=== PATIENT | female | born 1950 | race Caucasian/White ===

== ENCOUNTER 2019-05-15 17:24 | Outpatient (CLI) | payer MEDICARE, SELFPAY ==
--- NOTE | 2019-05-15 | XR_ITS ---
WS: [id number] RIGHT SHOULDER: 3 VIEW(S) TECHNIQUE: Internal and external rotation with Y view. HISTORY: RIGHT SHOULDER PAIN COMPARISON: None available. No fracture or dislocation or soft tissue abnormality. Prior resection of the distal RIGHT clavicle. Widening of the AC joint status post surgical resection . XR/XR shoulder RT min 2V* [id number] IMPRESSION: 1. No dislocation or fracture. 2. Status post resection distal RIGHT clavicle.
== END 2019-05-15 17:25 | disposition home or self-care (01) ==
PROVIDERS: Visit Provider Nurse Practitioner Family
DX: Z76.89 Persons encountering health services in other specified circumstances (principal)

== ENCOUNTER → 2020-10-04 17:09 | Outpatient (BNVA) | payer MEDICARE, SELFPAY | PROVIDERS: Visit Provider Nurse Practitioner | DX: M54.9 Dorsalgia, unspecified (principal); N39.0 Urinary tract infection, site not specified | CPT/HCPCS: 81000 ==

== ENCOUNTER 2021-07-25 18:06 | Emergency (ER) | payer MEDICARE, SELFPAY ==
[2021-07-25 18:24] VITALS: BP 140/83; PULSE 103; RESP 20; TEMP 37.2; O2SAT 95; BMI 31.8
--- NOTE | 2021-07-25 18:36 | ECG_ITS ---
[facility] Test Date: 2021-07-25 Pat Name: Jazmín Thomas Department: Room: Gender: Female Strategic Development Manager: : 1950 Requested By: Flaco Allred Order Number: [id number] Rosalinda MD: Mio Howard M.D. Measurements Intervals [place] Rate: 92 P: 87 ID: [id number] QRS: 84 QRSD: 66 T: 80 QT: 324 QTc: 401 Interpretive Statements SINUS RHYTHM No previous ECG available for comparison Electronically Signed On 07-25-2021 19:07:32 CDT by Mio Howard M.D. [id number]
--- NOTE | 2021-07-25 18:36 | XRR_ITS ---
PROCEDURE INFORMATION: Exam: XR Chest Exam date and time: 07/25/2021 7:06 PM Age: 71 years old Clinical indication: Dyspnea; Additional info: Chest pain, dyspnea TECHNIQUE: Imaging protocol: XR of the chest. Views: 2 views. COMPARISON: CR XR shoulder RT min 2V* [id number] 05/15/2019 5:24 PM FINDINGS: Lungs: Mildly hyperaerated lungs consistent with deep inspiratory effort vs reactive airway disease vs mild COPD . Possible faint 3.0 cm rounded pneumonia right lung base versus overlapping shadows. Seen only on the PA view. Pleural spaces: Unremarkable. No pleural effusion. No pneumothorax. Heart/Mediastinum: Unremarkable. No cardiomegaly. Bones/joints: Unremarkable. XR/XR chest 2V* [id number] IMPRESSION: 1. Mildly hyperaerated lungs consistent with deep inspiratory effort vs reactive airway disease vs mild COPD . 2. Possible faint 3.0 cm rounded pneumonia right lung base versus overlapping shadows. Seen only on the PA view.
--- NOTE | 2021-07-25 18:49 | W.ED.GENADLT ---
HPI - General Adult General: Chief complaint: Shortness of Breath/Dyspnea Stated complaint: SOB, cough Time Seen by Provider: 07/25/21 18:36 History of Present Illness: Patient is 71-year-old female with a history of smoking who presents the emergency room with 2 weeks of worsening symptoms of cough, generalized weakness, productive sputum and fatigue. Patient tells me that her grandson are sick at home with RSV. Patient went to an urgent care and was told to come to the emergency room. Patient has been having on and off fever for the last 5 days with fever yesterday of 102 degrees. Patient denies any diarrhea, abdominal complaints, nausea/vomiting, melena hematochezia or urinary complaints Onset: 2 weeks ago Duration:2 weeks Location:home Severity: moderate Associated symptoms: Reports dyspnea; Deny chest pain, nausea, rash, palpitations or vomiting Review of Systems Const: Reports: fatigue and other (+generalized weakness); Denies: fever(s) or chills Eyes: Denies: change in vision ENMT: Denies: mouth pain Card: Denies: chest pain or palpitations Resp: Reports: dyspnea and productive cough GI: Denies: abdominal pain, nausea, vomiting or diarrhea : Denies: dysuria Musc: Denies: extremity pain Skin/Breast: Denies: rash or new lesions Neuro: Denies: weakness in extremities Psych: Reports: other (Normal mood) Dexter/Lymph: Denies: easy bruising PFS ED PFSH: Medical History (Updated 07/25/21 @ 20:43 by Flaco Allred MD) No pertinent past medical history Social History (Updated 07/25/21 @ 18:50 by Flaco Allred MD) Smoking and tobacco status: current every day smoker Alcohol intake: never Substance/Drug Use: never Physical Exam Const: COMMON NORMALS: alert HENMT: COMMON NORMALS: atraumatic HEAD & SCALP: atraumatic MOUTH: moist mucous membranes abnormal Eye: COMMON NORMALS: EOMs intact bilaterally and conjunctivae normal CONJUNCTIVA: Yes conjunctivae normal Neck/C-Spine: COMMON NORMALS: full ROM and supple Resp: COMMON NORMALS: normal respiratory effort OTHER: +mild coarse breath sounds b/l in the lung parrish Cardio: RATE: tachycardic GI: COMMON NORMALS: Soft to palpation and non-tender PALPATION: Yes Soft to palpation Extremity: COMMON NORMALS: full ROM Neuro: SENSORIUM/ORIENTATION: Yes alert MOTOR EXAM: No Abnormal motor strength present and Other motor observations present (no focal motor deficits) Psych: COMMON NORMALS: speech normal SPEECH: Yes normal speech MOOD & AFFECT: Yes euthymic mood Course Vital Signs: Vital signs: Vital Signs Temperature 99 F 07/25/21 18:24 Pulse Rate 95 07/25/21 22:04 Respiratory Rate 18 07/25/21 22:04 Blood Pressure 141/72 07/25/21 22:04 Pulse Oximetry 96 07/25/21 22:04 MDM - General Adult Medical Decision Making 71-year-old Fe with history of smoking presenting to the emergency room for evaluation of dyspnea, cough, generalized weakness and fatigue. On exam, patient is afebrile, has mild coarse breath sounds bilaterally appears to be dry and tachycardic. Patient received IVF. X-ray showed possible pneumonia vs atelectiasis. Covid swab negative. Influenza negative. Patient received DuoNeb in the emergency room reports symptomatic improvement. Patient received doxycycline and Augmentin for pneumonia. Rx tylenol PRN pain and fever, doxycycline and augmentin BID x 10 days for pneumonia I have given patient follow up with our patient case coordinator to be seen by our outpatient PCP for reassessment of pneumonia since patient does not have a PCP. Patient prefers providers at [facility]. Patient aware of a call from our patient case coordinator to schedule for appointment(s) and verbalizes understanding of the importance of following up. Disposition: Discharge. Patient counseled regarding diagnostic impression, treatment plan. Patient given ED strict return precautions to return for continuation, worsening, or development of new symptoms. Instructed to f/u w/ PCP regarding symptoms today. Patient verbalized understanding. Lab Data : 07/25/21 18:54 07/25/21 18:54 Radiology Impressions Chest X-Ray 07/25/21 18:36 IMPRESSION: 1. Mildly hyperaerated lungs consistent with deep inspiratory effort vs reactive airway disease vs mild COPD . 2. Possible faint 3.0 cm rounded pneumonia right lung base versus overlapping shadows. Seen only on the PA view. Laboratory Results WBC 12.6 10^3/uL (4.0-10.0) H 07/25/21 18:54 RBC 4.25 10^6/uL (4.1-5.3) 07/25/21 18:54 Hgb 12.6 g/dL (11.5-15.3) 07/25/21 18:54 Hct 38.7 % (37.0-47.0) 07/25/21 18:54 MCV 91.1 fl (81-99) 07/25/21 18:54 MCH 29.6 pg (28.0-34.0) 07/25/21 18:54 MCHC 32.6 g/dL (30.0-36.0) 07/25/21 18:54 RDW 12.5 % (12.1-15.1) 07/25/21 18:54 Plt Count 286 10^3/cmm (130-400) 07/25/21 18:54 MPV 9.3 fL (7.4-10.4) 07/25/21 18:54 Neut % (Auto) 73.7 % 07/25/21 18:54 Lymph % (Auto) 13.1 % 07/25/21 18:54 [place] % (Auto) 11.5 % 07/25/21 18:54 Eos % (Auto) 0.7 % 07/25/21 18:54 Baso % (Auto) 0.6 % 07/25/21 18:54 Neut # (Auto) 9.30 10^3/uL (1.8-7.7) H 07/25/21 18:54 Lymph # (Auto) 1.7 10^3/uL (0.8-4.8) 07/25/21 18:54 [place] # (Auto) 1.5 10^3/uL (0.2-0.9) H 07/25/21 18:54 Eos # (Auto) 0.1 10^3/uL (0.0-0.8) 07/25/21 18:54 Baso # (Auto) 0.1 10^3/uL (0.0-0.1) 07/25/21 18:54 Nucleated RBC % (auto) 0 % 07/25/21 18:54 Nucleated RBCs # 0.0 /100WBC 07/25/21 18:54 Sodium 133 mmol/L (136-145) L 07/25/21 18:54 Potassium 3.9 mmol/L (3.5-5.1) 07/25/21 18:54 Chloride 97 mmol/L (98-107) L 07/25/21 18:54 Carbon Dioxide 23 mmol/L (22-29) 07/25/21 18:54 Anion Gap 16.9 (5-19) 07/25/21 18:54 BUN 11 mg/dL (8-23) 07/25/21 18:54 Creatinine 0.7 mg/dL (0.5-0.9) 07/25/21 18:54 GFR Calculation 83.0 mL/min (90-130) L 07/25/21 18:54 Glucose 105 mg/dL (65-115) 07/25/21 18:54 Calculated Osmolality 276 mOsm/kg (285-295) L 07/25/21 18:54 Calcium 9.4 mg/dL (8.5-10.5) 07/25/21 18:54 Troponin T Baseline 6 ng/L (0-10) 07/25/21 18:54 Troponin T 120 Minute 8.02 ng/L (0-10) 07/25/21 20:55 Delta Troponin T Not Reportable 07/25/21 20:55 Nasal Influ A H1 2009 PCR Not detected (NOT DETECT) 07/25/21 18:54 Adenovirus (PCR) Not detected (NOT DETECT) 07/25/21 18:54 C. pneumoniae DNA (PCR) Not detected (NOT DETECT) 07/25/21 18:54 Coronavirus 229E (PCR) Not detected (NOT DETECT) 07/25/21 18:54 Human Metapneumovir PCR Not detected (NOT DETECT) 07/25/21 18:54 Influenza A (H1) PCR Not detected (NOT DETECT) 07/25/21 18:54 Influenza A (H3) PCR Not detected (NOT DETECT) 07/25/21 18:54 Influenza Type A (PCR) Not detected (NOT DETECT) 07/25/21 18:54 Influenza Type B (PCR) Not detected (NOT DETECT) 07/25/21 18:54 M. pneumoniae (PCR) Not detected (NOT DETECT) 07/25/21 18:54 Parainfluenza 1 (PCR) Not detected (NOT DETECT) 07/25/21 18:54 Parainfluenza 2 (PCR) Not detected (NOT DETECT) 07/25/21 18:54 Parainfluenza 3 (PCR) Not detected (NOT DETECT) 07/25/21 18:54 Parainfluenza 4 (PCR) Not detected (NOT DETECT) 07/25/21 18:54 RSV Type A (PCR) Not detected (NOT DETECT) 07/25/21 18:54 RSV Type B (PCR) Not detected (NOT DETECT) 07/25/21 18:54 Entero/Rhino (PCR) Not detected (NOT DETECT) 07/25/21 18:54 SARS-CoV-2 (PCR) Not detected (NOT DETECT) 07/25/21 18:54 Imaging Data Other Imaging: My impression: [facility] [place] [address] XRay Report Signed Patient: Jazmín Thomas Unit #: [id number] : 1950 Age/Sex: 71 / F ADM Date: 07/25/21 Loc: ER Room/Bed: Attending Dr: Ordering Provider/Ordering MD: Flaco Allred MD Date of Service: 07/25/21 Procedure(s): XR chest 2V* [id number] Accession Number(s): [id number] Report Number: [id number] PROCEDURE INFORMATION: Exam: XR Chest Exam date and time: 07/25/2021 7:06 PM Age: 71 years old Clinical indication: Dyspnea; Additional info: Chest pain, dyspnea TECHNIQUE: Imaging protocol: XR of the chest. Views: 2 views. COMPARISON: CR XR shoulder RT min 2V* [id number] 05/15/2019 5:24 PM FINDINGS: Lungs: Mildly hyperaerated lungs consistent with deep inspiratory effort vs reactive airway disease vs mild COPD . Possible faint 3.0 cm rounded pneumonia right lung base versus overlapping shadows. Seen only on the PA view. Pleural spaces: Unremarkable. No pleural effusion. No pneumothorax. Heart/Mediastinum: Unremarkable. No cardiomegaly. Bones/joints: Unremarkable. XR/XR chest 2V* [id number] IMPRESSION: 1. Mildly hyperaerated lungs consistent with deep inspiratory effort vs reactive airway disease vs mild COPD . 2. Possible faint 3.0 cm rounded pneumonia right lung base versus overlapping shadows. Seen only on the PA view. ? Dictated By: Paul Rolle MD Signed By: Paul Rolle MD Signed Date/Time: 07/25/212018 DD/ 1906 Discharge Plan Discharge Patient Disposition: Home Clinical Impression: Cough, Pneumonia Condition: Stable Prescriptions: New acetaminophen 500 mg tablet 500 mg PO Q6H PRN (Reason: pain) 5 Days Qty: 20 0RF doxycycline hyclate 100 mg capsule 100 mg PO BID 10 Days Qty: 20 0RF Augmentin 500-125 mg tablet 1 tab PO BID 10 Days Qty: 20 0RF No Action ciprofloxacin HCl [Cipro] 500 mg tablet 500 mg PO Q12H 7 Days Qty: 14 0RF phenazopyridine [Pyridium] 200 mg tablet 200 mg PO TID Qty: 6 0RF Discharge Orders: Discharge ED (Routine); Ordered 07/25/21 Ordered By: Flaco Allred Discharge Diet: Advance as tolerated Discharge Activity: Increase activity as tolerated Patient Instructions: Acute Cough (ED) Activity Restrictions/Additional Instructions: Come back to the emergency room if your symptoms worsen, have any shortness of breath, fever/chills, dehydration, inability tolerate food or drinks, any difficulty breathing, or any new or concerning complaints. Coding Level of Care Code ED Ethics Manager for Erik Fwmarquise Exam Comprehensive
[2021-07-25 19:00] LABS: Basophils # 0.1 10^3/uL (0.0-0.1); Basophils % 0.6 %; Eosinophils # 0.1 10^3/uL (0.0-0.8); Eosinophils % 0.7 %; Hematocrit 38.7 % (37.0-47.0); Hemoglobin 12.6 g/dL (11.5-15.3); Lymphocytes # 1.7 10^3/uL (0.8-4.8); Lymphocytes % 13.1 %; Mean Corpuscular HGB Conc 32.6 g/dL (30.0-36.0); Mean Corpuscular Hemoglobin 29.6 pg (28.0-34.0); Mean Corpuscular Volume 91.1 fl (81-99); Mean Platelet Volume 9.3 fL (7.4-10.4); Monocytes # 1.5 10^3/uL (0.2-0.9); Monocytes % 11.5 %; Neutrophils % 73.7 %; Nucleated Red Blood Cells % 0 %; Platelet Count 286 10^3/cmm (130-400); Red Blood Count 4.25 10^6/uL (4.1-5.3); Red Cell Distribution Width 12.5 % (12.1-15.1); White Blood Count 12.6 10^3/uL (4.0-10.0)
[2021-07-25] MEDS: sodium chloride 0.9% 500 ML IV (19:03)
[2021-07-25] MEDS: ipratropium-albuterol 3 mL Neb INHALATION ×3 (19:06)
[2021-07-25 19:14] VITALS: PULSE 91; RESP 18; O2SAT 95
[2021-07-25 19:20] LABS: Anion Gap 16.9 (5-19); Blood Urea Nitrogen 11 mg/dL (8-23); Calcium 9.4 mg/dL (8.5-10.5); Carbon Dioxide 23 mmol/L (22-29); Chloride 97 mmol/L (98-107); Creatinine Clr Calc Pharmacy 67.1591; Glucose 105 mg/dL (65-115); Osmolality Calculated 276 mOsm/kg (285-295); Potassium 3.9 mmol/L (3.5-5.1); Sodium 133 mmol/L (136-145)
[2021-07-25 19:23] LABS: Troponin(5th) Baseline 6 ng/L (0-10)
[2021-07-25 20:09] VITALS: BP 150/82; PULSE 109; RESP 20; O2SAT 92
--- NOTE | 2021-07-25 20:36 | ECG_ITS ---
[facility] Test Date: 2021-07-25 Pat Name: Jazmín Thomas Department: Room: Gender: Female Community Action Worker: : 1950 Requested By: Flaco Allred Order Number: [id number] Rosalinda MD: Mio Howard M.D. Measurements Intervals [place] Rate: 106 P: 83 OK: 133 QRS: 71 QRSD: 77 T: 61 QT: 305 QTc: 406 Interpretive Statements SINUS TACHYCARDIA NONSPECIFIC ST & T-WAVE ABNORMALITY ABNORMAL RHYTHM ECG Compared to ECG 07/25/2021 18:41:26 T-wave abnormality now present Sinus rhythm no longer present Electronically Signed On 07-26-2021 22:02:20 CDT by Mio Howard M.D. [id number]
[2021-07-25 20:41] LABS: Adenovirus Not Detected (NOT DETECT); Chlamydia Pneumoniae Not Detected (NOT DETECT); Coronavirus 229E,HKU1,NL63,OC4 Not Detected (NOT DETECT); Human Metapneumovirus Not Detected (NOT DETECT); Human Rhinovirus/Enterovirus Not Detected (NOT DETECT); Influenza A Not Detected (NOT DETECT); Influenza A H1 Not Detected (NOT DETECT); Influenza A H1-2009 Not Detected (NOT DETECT); Influenza A H3 Not Detected (NOT DETECT); Influenza B Not Detected (NOT DETECT); Mycoplasma Pneumoniae Not Detected (NOT DETECT); Parainfluenza Virus Type 1 Not Detected (NOT DETECT); Parainfluenza Virus Type 2 Not Detected (NOT DETECT); Parainfluenza Virus Type 3 Not Detected (NOT DETECT); Parainfluenza Virus Type 4 Not Detected (NOT DETECT); Respiratory Syncytial Virus A Not Detected (NOT DETECT); Respiratory Syncytial Virus B Not Detected (NOT DETECT); SARS-COV-2 Not Detected (NOT DETECT)
[2021-07-25] MEDS: amoxicillin-clav 875-125 mg Tablet 1 TAB PO (20:57)
[2021-07-25] MEDS: doxycycline 100 MG in sodium chloride 0.9% (plus) 100 ML IV (20:57)
[2021-07-25] MEDS: sodium chloride 0.9% 1,000 ML 999 ML IV (20:58)
[2021-07-25 21:00] VITALS: BP 146/79; PULSE 119; RESP 18; O2SAT 97
[2021-07-25 21:29] LABS: Troponin 5 2HR 8.02 ng/L (0-10)
[2021-07-25 21:30] VITALS: BP 141/72; PULSE 95; RESP 18; O2SAT 96
[2021-07-25 22:04] VITALS: BP 141/72; PULSE 95; RESP 18; O2SAT 96
--- NOTE | 2021-08-05 13:37 | DCPLANNER ---
community arts centre manager had message to speak with patient about getting established with a primary care physician. community arts centre manager unable to speak with patient, and unable to leave a voicemail for patient at this time.
== END 2021-07-25 22:09 | disposition home or self-care (01) ==
PROVIDERS: Physician Assistant; Emergency Provider Emergency Medicine
DX: J18.9 Pneumonia, unspecified organism (principal); R00.0 Tachycardia, unspecified; F17.200 Nicotine dependence, unspecified, uncomplicated; Z20.822 Contact with and (suspected) exposure to COVID-19; Z20.828 Contact with and (suspected) exposure to other viral communicable diseases
CPT/HCPCS: 71046; 80048; 84484; 85025; 87486; 87581; 87633; 93005; 94640; 96361; 96365; 99284; J3490; J7030; J7040

== ENCOUNTER → 2021-10-09 18:46 | Outpatient (BNVA) | payer MEDICARE, SELFPAY | PROVIDERS: Visit Provider Registered Nurse Neonatal Intensive Care | DX: N39.0 Urinary tract infection, site not specified (principal) | CPT/HCPCS: 81000 ==

== ENCOUNTER 2022-02-09 16:54 | Outpatient (CLI) | payer MEDICARE, SELFPAY ==
--- NOTE | 2022-02-09 17:05 | CT_ITS ---
WS: [id number] LDCT LUNG CANCER SCREENING TECHNIQUE: Noncontrast CT of the chest with coronal and sagittal reformatted images. CLINICAL INFORMATION: NICOTINE DEPENDENCE COMPARISON: None. DLP: 71.10 mGy.cm DIvol: Mean CTDIvol: 1.60 (mGy) All CT scans at [facility] use at least one of these dose optimization techniques: automat ed exposure control; mA and/or kV adjustment per patient size (includes targeted exams where dose is matched to clinical indication); or iterative reconstruction. FINDINGS: A few tiny noncalcified micronodules. Tiny noncalcified nodule RIGHT lower lobe near the fi ssure measuring 2 mm. Tiny 2 mm nodule LEFT lower lobe subpleural. No suspicious pulmonary parenchyma l opacities. Mild aortic calcification. No mediastinal or hilar lymphadenopathy. No axillary lymphadenopathy. Normal GE junction. Adrenal glands are normal. Splenic artery calcification. Moderate thoracic kyphos is. Hypertrophic changes thoracic spine with ankylosis. A few calcified granulomas. CT/CT lung screening [id number] IMPRESSION: LUNG-RADS: 2-Benign Appearance or Behavior FOLLOW UP: 12 Month: Continue annual screening with LDCT
== END 2022-02-09 16:55 | disposition home or self-care (01) ==
PROVIDERS: PCP Family Medicine; Visit Provider Family Medicine
DX: Z12.2 Encounter for screening for malignant neoplasm of respiratory organs (principal); Z87.891 Personal history of nicotine dependence
CPT/HCPCS: 71271

== ENCOUNTER 2022-02-11 13:16 | Outpatient (CLI) | payer MEDICARE, SELFPAY ==
--- NOTE | 2022-02-11 13:19 | XR_ITS ---
WS: [id number] DEXA (DUAL ENERGY X-RAY ABSORPTIOMETRY) Bone mineral density was performed using a [employer] machine. HISTORY: POSTMENOPAUSAL COMPARISON: None available. Lumbar spine BMD (L1-L4): 1.027 g/cm2 T score: -1.3 Z score: 0.0 Total hip BMD: Left: 0.763 g/cm2. T score: -1.9 Z score: -0.7 Right: 0.738 g/cm2. T score: -2.1 Z score: -0.9 10 year probability of a major osteoporotic fracture is 29%. XR/XR DEXA axial skeleton* [id number] IMPRESSION: OSTEOPENIA based upon the WHO classification for females.
== END 2022-02-11 13:17 | disposition home or self-care (01) ==
PROVIDERS: PCP Family Medicine; Visit Provider Family Medicine
DX: Z78.0 Asymptomatic menopausal state (principal); M85.80 Other specified disorders of bone density and structure, unspecified site
CPT/HCPCS: 77080

== ENCOUNTER → 2022-11-11 12:30 | Outpatient (BNVA) | payer MEDICARE, SELFPAY | PROVIDERS: PCP Family Medicine; Visit Provider Internal Medicine Pulmonary Disease | DX: R06.02 Shortness of breath (principal) | CPT/HCPCS: 36415; 82785; 85025; 86003; 99204 ==

== ENCOUNTER 2022-12-01 12:39 | Outpatient (CLI) | payer MEDICARE, SELFPAY ==
[2022-12-01 12:49] VITALS: BP 143/68
[2022-12-01 13:03] VITALS: PULSE 60; RESP 18; O2SAT 97
[2022-12-01] MEDS: albuterol 2.5 mg/3 mL Neb INHALATION (13:03)
[2022-12-01 13:08] VITALS: PULSE 71
== END 2022-12-01 12:40 | disposition home or self-care (01) ==
PROVIDERS: PCP Family Medicine; Visit Provider Internal Medicine Pulmonary Disease
DX: J44.9 Chronic obstructive pulmonary disease, unspecified (principal)
CPT/HCPCS: 94060; 94618; 94726; 94729; J7613

== ENCOUNTER → 2023-01-13 14:20 | Outpatient (BNVA) | payer MEDICARE, SELFPAY | PROVIDERS: PCP Family Medicine; Visit Provider Internal Medicine Pulmonary Disease | DX: J44.9 Chronic obstructive pulmonary disease, unspecified (principal); Z12.2 Encounter for screening for malignant neoplasm of respiratory organs; D72.10 Eosinophilia, unspecified; J31.0 Chronic rhinitis; J22 Unspecified acute lower respiratory infection; R91.1 Solitary pulmonary nodule; F17.210 Nicotine dependence, cigarettes, uncomplicated | CPT/HCPCS: 99214 ==

== ENCOUNTER 2023-02-10 13:37 | Outpatient (CLI) | payer MEDICARE, SELFPAY ==
--- NOTE | 2023-02-10 14:00 | CT_ITS ---
WS: [id number] LDCT LUNG CANCER SCREENING HISTORY: Cancer Screen TECHNIQUE: Axial imaging performed from the apices to 1 cm below the costophrenic angles. Coronal and sagittal reformats are submitted with axial MIP series. All CT scans at [facility] use at least one of these dose optimization techniques: automated exposure control; mA and/or kV adjustment per patient size (includes targeted exams where dose is matched to clinical indication); or iterativ e reconstruction. DLP: 67.71 mGy.cm DIvol: Mean CTDIvol: 1.30 (mGy) COMPARISON: 02/09/2022 Diagnostic quality: Satisfactory Lungs: Hyperexpanded lungs with emphysema. Benign granuloma RIGHT lower lobe. No mass or nodule. No p neumonia. No endobronchial lesions. Heart: Normal size heart with no pericardial effusion.. Other findings: Mild pulmonary artery enlargement. Mild atherosclerosis aorta. Normal adrenal glands. Negative gallbladder. Mild thoracic spondylosis. IMPRESSION: CT/CT lung screening [id number] LUNG-RADS: 1-Negative FOLLOW UP: 12 Month: Continue annual screening with LDCT OTHER FINDINGS (S MODIFIER): None.
== END 2023-02-10 13:38 | disposition home or self-care (01) ==
LOC: RAD 13:37
PROVIDERS: PCP Family Medicine; Visit Provider Internal Medicine Pulmonary Disease
DX: Z12.2 Encounter for screening for malignant neoplasm of respiratory organs (principal); F17.210 Nicotine dependence, cigarettes, uncomplicated
CPT/HCPCS: 71271

== ENCOUNTER → 2023-07-14 13:00 | Outpatient (BNVA) | payer MEDICARE, SELFPAY | PROVIDERS: PCP Family Medicine; Visit Provider Internal Medicine Pulmonary Disease | DX: J44.9 Chronic obstructive pulmonary disease, unspecified (principal); D72.10 Eosinophilia, unspecified; J31.0 Chronic rhinitis; J32.9 Chronic sinusitis, unspecified | CPT/HCPCS: 99214 ==

== ENCOUNTER 2024-02-15 13:43 | Outpatient (CLI) | payer MEDICARE, SELFPAY ==
--- NOTE | 2024-02-15 13:49 | CT_ITS ---
WS: [id number] LDCT LUNG CANCER SCREENING HISTORY: HISTORY OF TOBACCO USE TECHNIQUE: Axial imaging performed from the apices to 1 cm below the costophrenic angles. Coronal and sagittal reformats are submitted with axial MIP series. All CT scans at [facility] use at least one of these dose optimization techniques: automated exposure control; mA and/or kV adjustment per patient size (includes targeted exams where dose is matched to clinical indication); or iterativ e reconstruction. DLP: 86.31 mGy.cm DIvol: Mean CTDIvol: 1.90 (mGy) COMPARISON: 02/10/2023 Diagnostic quality: Satisfactory Lungs: Mild pulmonary hyperexpansion. There are a few small scattered granulomata. No soft tissue mas s or enlarging nodules. Thin septation in the proximal LEFT bronchus. Heart: Normal size heart with no pericardial effusion.. Other findings: Mild atherosclerosis aorta. Mild pulmonary enlargement. No adenopathy. No adrenal mas s. CT/CT lung screening [id number] IMPRESSION: LUNG-RADS: 1-Negative FOLLOW UP: 12 Month: Continue annual screening with LDCT OTHER FINDINGS (S MODIFIER): None.
== END 2024-02-15 13:44 | disposition home or self-care (01) ==
LOC: RAD 13:46
PROVIDERS: PCP Family Medicine; Visit Provider Family Medicine
DX: Z12.2 Encounter for screening for malignant neoplasm of respiratory organs (principal); Z87.891 Personal history of nicotine dependence; J84.10 Pulmonary fibrosis, unspecified
CPT/HCPCS: 71271

== ENCOUNTER 2025-02-18 13:23 | Outpatient (CLI) | payer MEDICARE, SELFPAY ==
--- NOTE | 2025-02-18 13:31 | CT_ITS ---
WS: [id number] LDCT LUNG CANCER SCREENING HISTORY: HX OF TOBACCO USE TECHNIQUE: Axial imaging performed from the apices to 1 cm below the costophrenic angles. Coronal and sagittal reformats are submitted with axial MIP series. All CT scans at [facility] use at least one of these dose optimization techniques: automated exposure control; mA and/or kV adjustment per patient size (includes targeted exams where dose is matched to clinical indication); or iterative reconstruction. DLP: 82.62 mGy.cm DIvol: Mean CTDIvol: 1.90 (mGy) COMPARISON: 02/15/2024 Diagnostic quality: Satisfactory Lungs: Lungs are mildly hyperexpanded. Diffuse benign granuloma. No pulmonary mass or nodule. No pneumonia. No endobronchial lesions. Heart: Normal size heart with no pericardial effusion.. Other findings: Mild atherosclerosis aorta. Pulmonary artery is slightly dilated. No mediastinal or hilar adenopathy. No pericardial or pleural effusions. Small hiatal hernia. Splenic artery calcifications. No destructive bone lesions. CT/CT lung screening [id number] IMPRESSION: LUNG-RADS: 2-Benign Appearance or Behavior FOLLOW UP: 12 Month: Continue annual screening with LDCT OTHER FINDINGS (S MODIFIER): None.
== END 2025-02-18 13:24 | disposition home or self-care (01) ==
LOC: RAD 13:24
PROVIDERS: PCP Family Medicine; Visit Provider Family Medicine
DX: Z12.2 Encounter for screening for malignant neoplasm of respiratory organs (principal); Z87.891 Personal history of nicotine dependence; J84.10 Pulmonary fibrosis, unspecified; I70.0 Atherosclerosis of aorta; K44.9 Diaphragmatic hernia without obstruction or gangrene; I70.8 Atherosclerosis of other arteries
CPT/HCPCS: 71271